=== PATIENT | male | born 1990 | race Caucasian/White ===

== ENCOUNTER 2017-12-04 14:38 | Emergency (ER) | payer SELFPAY ==
[~2017-12-04] VITALS: Ht 188 cm; Wt 107.5 kg
[2017-12-04 19:42] VITALS: BP 129/74
== END 2017-12-04 19:44 | disposition home or self-care (01) ==
LOC: ED 19:09
DX: S06.0X0A Concussion without loss of consciousness, initial encounter (principal); S29.019A Strain of muscle and tendon of unspecified wall of thorax, initial encounter; S39.012A Strain of muscle, fascia and tendon of lower back, initial encounter; H54.3 Unqualified visual loss, both eyes; V69.49XA Driver of heavy transport vehicle injured in collision with other motor vehicles in traffic accident, initial encounter; Y93.89 Activity, other specified; Y92.89 Other specified places as the place of occurrence of the external cause; Y99.8 Other external cause status
CPT/HCPCS: 70450; 70551; 72072; 72110; 72125; 99284